=== PATIENT | male | born 1955 | race American Indian/Alaskan Native ===

== ENCOUNTER 2018-08-25 08:20 | Emergency (ER) | payer SELFPAY ==
[2018-08-25] MEDS ORDERED: FIORICET PO ONE (09:20)
[2018-08-25] MEDS ORDERED: ANTIVERT PO ONE (09:20)
--- NOTE | 2018-08-25 09:26 | Emergency Department Report ---
HPI - General Chief Complaint: Dizziness Time Seen by Provider: 08/25/18 09:19 - [facility] HPI: Room 31 The patient is a 62-year-old male presenting with a chief complaint of headache and dizziness. The patient states for the past 2 days he's had intermittent dizziness. The patient states there is no relationship with change in position. Patient states she's also had an intermittent headache and "wavy vision." Patient says yesterday his headache increased in argument at work. The patient states this morning while her and go to work his dizziness returned so he decided to come to the ED for evaluation. Patient denies weakness or dysarthria. Patient currently gives his headache is score of 8/10 Location: [See above] Duration: Intermittent 2 days Quality:, Dizziness Severity: 8/10 Modifying factors: [see above] Context: [see above] Mode of transportation: [not driving] ED Past Medical Hx - Past Medical History Hx Hypertension: Yes Hx Diabetes: Yes Hx COPD: Yes - Surgical History Past Surgical History?: No - Family History Family history: no significant - Social History Smoking Status: Current Every Day Smoker (1/7 pack per day) Substance Use Type: Marijuana - Medications Home Medications: Home Medications Medication Instructions Recorded Confirmed Last Taken Type Amlodipine Besylate [Norvasc] 5 mg PO QDAY #90 tablet 08/25/18 Unknown Rx Butalb/Acetamin/Caff 50-325-40 2 tab PO Q8HR PRN #20 tablet 08/25/18 Unknown Rx [Fioricet] Meclizine [Antivert] 25 mg PO TID PRN #20 tablet 08/25/18 Unknown Rx ED Review of Systems ROS: Stated complaint: DIABETE/DIZZINESS/HEADACHE Other details as noted in HPI Constitutional: no symptoms reported Eyes: vision change ENT: denies: throat pain Respiratory: no symptoms reported Cardiovascular: denies: chest pain Endocrine: no symptoms reported Gastrointestinal: denies: abdominal pain Genitourinary: denies: dysuria Musculoskeletal: arthralgia Neurological: headache, vertigo. denies: weakness Physical Exam - Physical Exam Vital Signs: Vital Signs 08/25/18 08:26 Temperature 98.1 F Pulse Rate 83 Respiratory 16 Rate Blood Pressure 159/85 O2 Sat by Pulse 99 Oximetry Physical Exam: GENERAL: The patient is well-developed well-nourished male sitting in chair not appearing to be in acute distress. [] HEENT: Normocephalic. Atraumatic. Extraocular motions are intact. Patient has moist mucous membranes. No nystagmus noted NECK: Supple. No meningitic signs are noted. Trachea midline CHEST/LUNGS: Clear to auscultation. There is no respiratory distress noted. HEART/CARDIOVASCULAR: Regular. There is no tachycardia. There is no gallop rub or murmur. ABDOMEN: Abdomen is soft, nontender. Patient has normal bowel sounds. There is no abdominal distention. SKIN: There is no rash. There is no edema. There is no diaphoresis. NEURO: The patient is awake, alert, and oriented. The patient is cooperative. The patient has no focal neurologic deficits. The patient has normal speech. Cranial nerves II through XII grossly intact, no drift. No dysmetria noted with [id number] bilaterally MUSCULOSKELETAL: There is no evidence of acute injury. NIHSS= 0 LOC a. Alert= 0 Not alert but arousable to minor stimuli=1 Not alert requires repeated or strong stimuli to move= 2 Responds only reflex motor or unresponsive=3 b. asks month and age answers both correctly= 0 answers one correctly= 1 answers neither correctly= 2 Best Gaze normal= 0 abnormal in one or both but forced deviation or total paresis absent= 1 forced deviation or total gaze paresis= 2 Visual no visual loss= 0 partial hemianopia= 1 complete hemianopia= 2 bilateral hemianopia= 3 Facial Palsy normal= 0 minor paralysis= 1 partial paralysis= 2 complete paralysis= 3 Motor Arm no drift= 0 drift before 10 secs but doesnt hit bed= 1 some effort against gravity= 2 no effort against gravity= 3 no movement= 4 Motor leg no drift= 0 drift before 5 secs but doesnt hit bed= 1 drifts to bed before 5 secs= 2 no effort against gravity= 3 no movement= 4 Limb ataxia absent=0 present in one limb= 1 present in two limbs= 2 Sensory normal= 0 mild sensory loss= 1 severe (unaware of being touched)= 2 Best language mild/some loss of fluency= 1 severe= 2 mute= 3 Dysarthria normal= 0 slurs some words= 1 severe/unintelligible= 2 Extinction and Inattention no abnormality= 0 visual, tactile, auditory or personal inattention= 1 profound (doesnt recognize own hand or orients to only one side= 2 ED Course Vital Signs 08/25/18 08:26 Temperature 98.1 F Pulse Rate 83 Respiratory 16 Rate Blood Pressure 159/85 O2 Sat by Pulse 99 Oximetry ED Medical Decision Making - Lab Data Result diagrams: 08/25/18 09:21 08/25/18 09:21 Laboratory Tests 08/25/18 08/25/18 08/25/18 08:31 09:21 09:21 WBC 5.3 RBC 4.26 Hgb 13.5 Hct 39.8 MCV 93 MCH 32 MCHC 34 RDW 12.9 L Plt Count 330 Lymph % (Auto) 35.2 H [place] % (Auto) 7.9 H Eos % (Auto) 1.6 Baso % (Auto) 0.6 Lymph # 1.9 [place] # 0.4 Eos # 0.1 Baso # 0.0 Seg Neutrophils % 54.7 Seg Neutrophils # 2.9 VBG pH Sodium 140 Potassium 4.5 Chloride 102.7 Carbon Dioxide 25 Anion Gap 17 BUN 14 Creatinine 0.9 Estimated GFR > 60 BUN/Creatinine Ratio 16 Glucose 173 H POC Glucose 183 H Calcium 9.0 Total Creatine Kinase 245 H CK-MB (CK-2) 4.5 H CK-MB (CK-2) Rel Index 1.8 Troponin T < 0.010 TSH Free T4 08/25/18 08/25/18 09:21 09:21 WBC RBC Hgb Hct MCV MCH MCHC RDW Plt Count Lymph % (Auto) [place] % (Auto) Eos % (Auto) Baso % (Auto) Lymph # [place] # Eos # Baso # Seg Neutrophils % Seg Neutrophils # VBG pH 7.316 L Sodium Potassium Chloride Carbon Dioxide Anion Gap BUN Creatinine Estimated GFR BUN/Creatinine Ratio Glucose POC Glucose Calcium Total Creatine Kinase CK-MB (CK-2) CK-MB (CK-2) Rel Index Troponin T TSH 0.395 Free T4 1.22 - EKG Data -: EKG Interpreted by Me EKG shows normal: sinus rhythm Rate: normal - EKG Data When compared to previous EKG there are: previous EKG unavailable Interpretation: other (no ischemic changes seen) - Differential Diagnosis vertigo, cerebellar mass, intracranial hemorrhage Critical care attestation.: If time is entered above; I have spent that time in minutes in the direct care of this critically ill patient, excluding procedure time. ED Disposition Clinical Impression: Hypertension, Vertigo Disposition: DC-01 TO HOME OR SELFCARE Is pt being admited?: No Does the pt Need Aspirin: No Condition: Stable Instructions: Hypertension (ED) Additional Instructions: Return to the emergency department immediately should you develop worsening symptoms, fever, inability to tolerate food or liquid or any other concerns. Prescriptions: Amlodipine Besylate [Norvasc] 5 mg PO QDAY #90 tablet Butalb/Acetamin/Caff 50-325-40 [Fioricet] 2 tab PO Q8HR PRN #20 tablet PRN Reason: Headache Meclizine [Antivert] 25 mg PO TID PRN #20 tablet PRN Reason: Vertigo Referrals: ZACH JARRELL MD [Staff Physician] - 3-5 Days [facility] [Outside] - 3-5 Days Time of Disposition: 10:30
[2018-08-25 09:45] VITALS: BP 158/80
[2018-08-25 09:56] LABS: Basophils % (Auto) 0.6 % (0.0-1.8); Eosinophils # (Auto) 0.1 K/mm3 (0.0-0.4); Eosinophils % (Auto) 1.6 % (0.0-4.3); Hematocrit 39.8 % (35.5-45.6); Hemoglobin 13.5 gm/dl (11.8-15.2); Lymphocytes # (Auto) 1.9 K/mm3 (1.2-5.4); Lymphocytes % (Auto) 35.2 % (13.4-35.0); Mean Corpuscular HGB Conc 34 % (32-34); Mean Corpuscular Volume 93 fl (84-94); Monocytes # (Auto) 0.4 K/mm3 (0.0-0.8); Monocytes % (Auto) 7.9 % (0.0-7.3); Platelet Count 330 K/mm3 (140-440); Red Blood Count 4.26 M/mm3 (3.65-5.03); Red Cell Distribution Width 12.9 % (13.2-15.2)
[2018-08-25 09:59] LABS: BUN/Creatinine Ratio 16; Blood Urea Nitrogen 14 mg/dL (9-20); Creatine Kinase MB 4.5 ng/mL (0.0-4.0); Hemolysis Index 4
[2018-08-25 10:09] LABS: Free T4 (Free Thyroxine) 1.22 ng/dL (0.76-1.46)
--- NOTE | 2018-08-25 10:14 | Cat Scan Report ---
FINAL REPORT EXAM: CT HEAD/BRAIN WO CON HISTORY: headache, dizziness TECHNIQUE: CT of the head was performed. No intravenous contrast was administered. PRIORS: None. FINDINGS: There is no evidence of intracranial hemorrhage. There is no edema, mass effect or midline shift. There are no abnormal extra-axial fluid collections. The ventricles are appropriate for brain volume. There is no skull fracture seen. The visualized aspects of the sinuses are clear. IMPRESSION: There is no acute intracranial abnormality identified.
== END 2018-08-25 10:44 | disposition home or self-care (01) ==
LOC: ED 08:20
DX: I10 Essential (primary) hypertension (principal); R42 Dizziness and giddiness; E11.9 Type 2 diabetes mellitus without complications; J44.9 Chronic obstructive pulmonary disease, unspecified; F17.200 Nicotine dependence, unspecified, uncomplicated; F12.10 Cannabis abuse, uncomplicated
CPT/HCPCS: 36415; 70450; 80048; 82550; 82553; 82805; 82962; 84439; 84443; 84484; 85025; 93005; 93010

== ENCOUNTER 2020-01-13 07:11 | Emergency (ER) | payer SELFPAY ==
[2020-01-13] MEDS ORDERED: ASPIRIN 325 MG TAB PO ONE (07:46)
--- NOTE | 2020-01-13 08:33 | XRay Report ---
CHEST 2 VIEWS INDICATION: Chest Pain. COMPARISON: None FINDINGS: Support devices: None. Heart: Within normal limits. Lungs/pleura: No acute air space or interstitial disease. No pneumothorax. Additional findings: None. IMPRESSION: Normal chest x-ray Signer Name: Calos Banuelos Jr, MD Signed: 01/13/2020 8:29 AM Workstation Name: [id number]
[2020-01-13 09:11] LABS: Basophils # (Auto) 0.1 K/mm3 (0.0-0.1); Basophils % (Auto) 1.9 % (0.0-1.8); Eosinophils # (Auto) 0.1 K/mm3 (0.0-0.4); Eosinophils % (Auto) 0.9 % (0.0-4.3); Hematocrit 41.9 % (35.5-45.6); Hemoglobin 14.3 gm/dl (11.8-15.2); Lymphocytes # (Auto) 1.7 K/mm3 (1.2-5.4); Lymphocytes % (Auto) 28.3 % (13.4-35.0); Mean Corpuscular HGB Conc 34 % (32-34); Mean Corpuscular Volume 93 fl (84-94); Monocytes # (Auto) 0.4 K/mm3 (0.0-0.8); Monocytes % (Auto) 7.3 % (0.0-7.3); Platelet Count 326 K/mm3 (140-440); Red Blood Count 4.52 M/mm3 (3.65-5.03); Red Cell Distribution Width 13.1 % (13.2-15.2)
[2020-01-13 09:24] LABS: BUN/Creatinine Ratio 14; Blood Urea Nitrogen 15 mg/dL (9-20); Calcium 9.7 mg/dL (8.4-10.2); Hemolysis Index 4
--- NOTE | 2020-01-13 10:23 | Emergency Department Report ---
ED General Adult HPI - General Chief complaint: Chest Pain Stated complaint: SOB Time Seen by Provider: 01/13/20 10:07 Source: patient Mode of arrival: Ambulatory Limitations: No Limitations - History of Present Illness Initial comments: Mr. Gallegos is a 64-year-old male with history of hypertension diabetes COPD who presents with lightheadedness tingling in his legs this morning. Symptoms are fleeting. He is currently symptom-free now. He is concerned for a fungus infection in his toe. He does not have a primary care physician. He denies any pain at this time. -: Gradual, This morning (Upon awakening this morning) Consistency: now resolved Improves with: none Worsens with: none - Related Data Previous Rx's Medication Instructions Recorded Last Taken Type Amlodipine Besylate [Norvasc] 5 mg PO QDAY #90 tablet 08/25/18 Unknown Rx Butalb/Acetamin/Caff 50-325-40 2 tab PO Q8HR PRN #20 tablet 08/25/18 Unknown Rx [Fioricet] Meclizine [Antivert] 25 mg PO TID PRN #20 tablet 08/25/18 Unknown Rx Metformin HCl [metFORMIN] 1,000 mg PO BID 90 Days #180 tab 01/13/20 Unknown Rx amLODIPine 10 mg PO DAILY 90 Days #90 tab 01/13/20 Unknown Rx hydroCHLOROthiazide [HCTZ] 25 mg PO QDAY 90 Days #90 tablet 01/13/20 Unknown Rx Allergies Allergy/AdvReac Type Severity Reaction Status Date / Time No Known Allergies Allergy Unverified 08/25/18 08:50 ED Review of Systems ROS: Stated complaint: SOB Other details as noted in HPI Comment: All other systems reviewed and negative Constitutional: denies: fever, malaise Respiratory: denies: cough Cardiovascular: denies: chest pain Gastrointestinal: denies: abdominal pain ED Past Medical Hx - Past Medical History Previous Medical History?: Yes Hx Hypertension: Yes Hx Diabetes: Yes Hx COPD: Yes - Surgical History Past Surgical History?: No - Social History Smoking Status: Current Some Day Smoker Substance Use Type: Alcohol - Medications Home Medications: Home Medications Medication Instructions Recorded Confirmed Last Taken Type Amlodipine Besylate [Norvasc] 5 mg PO QDAY #90 tablet 08/25/18 Unknown Rx Butalb/Acetamin/Caff 50-325-40 2 tab PO Q8HR PRN #20 tablet 08/25/18 Unknown Rx [Fioricet] Meclizine [Antivert] 25 mg PO TID PRN #20 tablet 08/25/18 Unknown Rx Metformin HCl [metFORMIN] 1,000 mg PO BID 90 Days #180 tab 01/13/20 Unknown Rx amLODIPine 10 mg PO DAILY 90 Days #90 tab 01/13/20 Unknown Rx hydroCHLOROthiazide [HCTZ] 25 mg PO QDAY 90 Days #90 tablet 01/13/20 Unknown Rx ED Physical Exam - General Limitations: No Limitations General appearance: alert, in no apparent distress - Head Head exam: Present: atraumatic, normocephalic - Eye Eye exam: Present: normal appearance - ENT ENT exam: Present: mucous membranes moist - Neck Neck exam: Present: normal inspection, full ROM - Respiratory Respiratory exam: Present: normal lung sounds bilaterally. Absent: respiratory distress - Cardiovascular Cardiovascular Exam: Present: regular rate, normal rhythm, normal heart sounds. Absent: systolic murmur, diastolic murmur, rubs, gallop - GI/Abdominal GI/Abdominal exam: Present: soft, normal bowel sounds. Absent: distended, tenderness, guarding, rebound - Rectal Rectal exam: Present: deferred - Extremities Exam Extremities exam: Present: other (Left foot secondary to overgrowth of the toenail deviated to the right) - Back Exam Back exam: Present: normal inspection - Neurological Exam Neurological exam: Present: alert, oriented X3 - Psychiatric Psychiatric exam: Present: normal affect, normal mood - Skin Skin exam: Present: warm, dry, intact, normal color. Absent: rash ED Course Vital Signs 01/13/20 07:27 Temperature 97.9 F Pulse Rate 90 Respiratory 18 Rate Blood Pressure 205/101 O2 Sat by Pulse 99 Oximetry ED Medical Decision Making - Lab Data Result diagrams: 01/13/20 08:46 01/13/20 08:46 Laboratory Results - last 24 hr 01/13/20 01/13/20 01/13/20 07:54 08:46 08:46 WBC 5.9 RBC 4.52 Hgb 14.3 Hct 41.9 MCV 93 MCH 32 MCHC 34 RDW 13.1 L Plt Count 326 Lymph % (Auto) 28.3 [place] % (Auto) 7.3 Eos % (Auto) 0.9 Baso % (Auto) 1.9 H Lymph # 1.7 [place] # 0.4 Eos # 0.1 Baso # 0.1 Seg Neutrophils % 61.6 Seg Neutrophils # 3.6 Sodium 135 L Potassium 4.5 Chloride 100.0 Carbon Dioxide 22 Anion Gap 18 BUN 15 Creatinine 1.1 Estimated GFR > 60 BUN/Creatinine Ratio 14 Glucose 335 H POC Glucose 385 H Calcium 9.7 Troponin T < 0.010 - EKG Data -: EKG Interpreted by Me EKG shows normal: sinus rhythm, axis, intervals, QRS complexes, ST-T waves Rate: normal - EKG Data 01/13/20 10:21 EKG obtained at 0734 Normal sinus rhythm rate 75 bpm normal axis normal intervals no ST elevation - Radiology Data Radiology results: report reviewed Chest radiograph: No acute findings according to radiology impression - Medical Decision Making 1. Hypertensive urgency without indication of TIA or ACS. Prescribed amlodipine hydrochlorothiazide. No evidence of endorgan damage. 2. Acute hyperglycemia due to noncompliance with metformin. Patient does not have a primary care physician. I have prescribed 90-day supply of metformin. I referred him to the primary physician operations administrative assistant. 3. Onychomycosis. Refer to [facility]bark peeler. Critical care attestation.: If time is entered above; I have spent that time in minutes in the direct care of this critically ill patient, excluding procedure time. ED Disposition Clinical Impression: Hypertensive urgency, Hyperglycemia due to type 2 diabetes mellitus, Onychomycosis Disposition: DC-01 TO HOME OR SELFCARE Is pt being admited?: No Does the pt Need Aspirin: No Condition: Stable Additional Instructions: You have a fungal infection involving your second toe. Please see our primary physician for complete comprehensive care. Prescriptions: amLODIPine 10 mg PO DAILY 90 Days #90 tab hydroCHLOROthiazide [HCTZ] 25 mg PO QDAY 90 Days #90 tablet Metformin HCl [metFORMIN] 1,000 mg PO BID 90 Days #180 tab Referrals: HELENE FORTUNE MD [Staff Physician] - 3-5 Days
[2020-01-13 11:51] VITALS: BP 168/65
== END 2020-01-13 10:55 | disposition home or self-care (01) ==
LOC: ED 07:11
DX: E11.65 Type 2 diabetes mellitus with hyperglycemia (principal); I16.0 Hypertensive urgency; B35.1 Tinea unguium
CPT/HCPCS: 36415; 71046; 80048; 82962; 84484; 85025; 93005